=== PATIENT | male | born 1970 | race American Indian/Alaskan Native ===

== ENCOUNTER 2018-09-19 18:54 | Emergency (ER) | payer SELFPAY ==
[2018-09-19 19:34] LABS: Basophils % (Auto) 0.8 % (0.0-1.8); Eosinophils # (Auto) 0.2 K/mm3 (0.0-0.4); Eosinophils % (Auto) 5.5 % (0.0-4.3); Hematocrit 39.8 % (35.5-45.6); Hemoglobin 13.4 gm/dl (11.8-15.2); Lymphocytes # (Auto) 2.1 K/mm3 (1.2-5.4); Lymphocytes % (Auto) 48.8 % (13.4-35.0); Mean Corpuscular HGB Conc 34 % (32-34); Mean Corpuscular Hemoglobin 30 pg (28-32); Mean Corpuscular Volume 89 fl (84-94); Monocytes # (Auto) 0.4 K/mm3 (0.0-0.8); Monocytes % (Auto) 9.1 % (0.0-7.3); Platelet Count 177 K/mm3 (140-440); Red Blood Count 4.45 M/mm3 (3.65-5.03); Red Cell Distribution Width 13.5 % (13.2-15.2)
[2018-09-19 19:52] LABS: BUN/Creatinine Ratio 13; Blood Urea Nitrogen 14 mg/dL (9-20); Calcium 9.5 mg/dL (8.4-10.2); Hemolysis Index 10
--- NOTE | 2018-09-19 20:00 | XRay Report ---
CHEST 2 VIEWS INDICATION / CLINICAL INFORMATION: Chest Pain. COMPARISON: None available. FINDINGS: SUPPORT DEVICES: None. HEART / MEDIASTINUM: No significant abnormality. LUNGS / PLEURA: No significant pulmonary or pleural abnormality. No pneumothorax. ADDITIONAL FINDINGS: No significant additional findings. IMPRESSION: 1. No acute findings. Signer Name: Lance Palacios MD Signed: 09/19/2018 7:56 PM Workstation Name: [id number]
--- NOTE | 2018-09-19 21:45 | Emergency Department Report ---
ED Chest Pain HPI - General Chief Complaint: Chest Pain Stated Complaint: RT CHEST PAIN/RT FINGER TINGLE Time Seen by Provider: 09/19/18 20:10 Source: patient Mode of arrival: Ambulatory Limitations: No Limitations - History of Present Illness Initial Comments: Patient is a 48-year-old male who presents to the emergency room with complaints of jumping feeling in the right side of his chest that began a few days ago. He states it feels like a spasm. He states he also noticed brief tingling in the right fingers. The patient states he has experienced before after heavy working out. He states he has been doing heavy lifting and pushups at the gym. He denies any nausea, vomiting, fever, cough, lower extremity edema, shortness of breath. He denies any cardiac history or family cardiac history. He has a past medical history of high blood pressure and did not take his medication today. He is also HIV positive on his antivirals. He states he does smoke tobacco. - Related Data Previous Rx's Medication Instructions Recorded Last Taken Type Cyclobenzaprine [Flexeril] 10 mg PO QHS PRN #10 tablet 09/19/18 Unknown Rx Naproxen [EC-Naprosyn] 500 mg PO BID PRN #20 tablet. 09/19/18 Unknown Rx Allergies Allergy/AdvReac Type Severity Reaction Status Date / Time Sulfa (Sulfonamide Allergy Itching Verified 09/19/18 19:00 Antibiotics) Heart Score - HEART Score History: Slightly suspicious EKG: Normal Age: 45-65 Risk factors: 1-2 risk factors Troponin: < normal limit HEART Score: 2 ED Review of Systems ROS: Stated complaint: RT CHEST PAIN/RT FINGER TINGLE Other details as noted in HPI Comment: All other systems reviewed and negative ED Past Medical Hx - Past Medical History Previous Medical History?: Yes Hx Hypertension: Yes Additional medical history: hiv - Surgical History Past Surgical History?: No - Social History Smoking Status: Never Smoker Substance Use Type: Alcohol - Medications Home Medications: Home Medications Medication Instructions Recorded Confirmed Last Taken Type Cyclobenzaprine [Flexeril] 10 mg PO QHS PRN #10 tablet 09/19/18 Unknown Rx Naproxen [EC-Naprosyn] 500 mg PO BID PRN #20 tablet. 09/19/18 Unknown Rx ED Physical Exam - General Limitations: No Limitations General appearance: alert, in no apparent distress - Head Head exam: Present: atraumatic, normocephalic - Eye Eye exam: Present: normal appearance, PERRL - ENT ENT exam: Present: mucous membranes moist - Respiratory Respiratory exam: Present: normal lung sounds bilaterally, chest wall tenderness (right anterior chest wall TTP). Absent: respiratory distress, wheezes, rales, rhonchi, stridor, accessory muscle use, decreased breath sounds, prolonged expiratory - Cardiovascular Cardiovascular Exam: Present: regular rate, normal rhythm, normal heart sounds. Absent: systolic murmur, diastolic murmur, rubs, gallop - Neurological Exam Neurological exam: Present: alert, oriented X3 - Psychiatric Psychiatric exam: Present: normal affect, normal mood - Skin Skin exam: Present: warm, dry, intact ED Course Vital Signs 09/19/18 09/20/18 18:58 00:20 Temperature 98.0 F 98.4 F Pulse Rate 75 70 Respiratory 16 16 Rate Blood Pressure 178/109 Blood Pressure 160/86 [Left] O2 Sat by Pulse 99 100 Oximetry REINIER score - Reinier Score Age > 65: (0) No Aspirin use within the Past 7 Days: (0) No 3 or more CAD Risk Factors: (0) No 2 or more Angina events in past 24 hrs: (0) No Known CAD with more than 50% Stenosis: (0) No Elevated Cardiac Markers: (0) No ST Deviation Greater than 0.5mm: (0) No REINIER Score: 0 ED Medical Decision Making - Lab Data Result diagrams: 09/19/18 19:20 09/19/18 19:20 Lab Results 09/19/18 09/19/18 09/19/18 Range/Units 19:20 19:20 22:28 WBC 4.3 L (4.5-11.0) K/mm3 RBC 4.45 (3.65-5.03) M/mm3 Hgb 13.4 (11.8-15.2) gm/dl Hct 39.8 (35.5-45.6) % MCV 89 (84-94) fl MCH 30 (28-32) pg MCHC 34 (32-34) % RDW 13.5 (13.2-15.2) % Plt Count 177 (140-440) K/mm3 Lymph % (Auto) 48.8 H (13.4-35.0) % Becker % (Auto) 9.1 H (0.0-7.3) % Eos % (Auto) 5.5 H (0.0-4.3) % Baso % (Auto) 0.8 (0.0-1.8) % Lymph # 2.1 (1.2-5.4) K/mm3 Becker # 0.4 (0.0-0.8) K/mm3 Eos # 0.2 (0.0-0.4) K/mm3 Baso # 0.0 (0.0-0.1) K/mm3 Seg Neutrophils % 35.8 L (40.0-70.0) % Seg Neutrophils # 1.5 L (1.8-7.7) K/mm3 Sodium 143 (137-145) mmol/L Potassium 4.1 (3.6-5.0) mmol/L Chloride 102.3 (98-107) mmol/L Carbon Dioxide 30 (22-30) mmol/L Anion Gap 15 mmol/L BUN 14 (9-20) mg/dL Creatinine 1.1 (0.8-1.5) mg/dL Estimated GFR > 60 ml/min BUN/Creatinine Ratio 13 % Glucose 97 (75-100) mg/dL Calcium 9.5 (8.4-10.2) mg/dL Troponin T < 0.010 < 0.010 (0.00-0.029) ng/mL Vital Signs 09/19/18 09/20/18 18:58 00:20 Temperature 98.0 F 98.4 F Pulse Rate 75 70 Respiratory 16 16 Rate Blood Pressure 178/109 Blood Pressure 160/86 [Left] O2 Sat by Pulse 99 100 Oximetry - EKG Data EKG shows normal: sinus rhythm, axis, intervals, QRS complexes, ST-T waves Rate: bradycardia - Radiology Data Radiology results: report reviewed CHEST 2 VIEWS INDICATION / CLINICAL INFORMATION: Chest Pain. COMPARISON: None available. FINDINGS: SUPPORT DEVICES: None. HEART / MEDIASTINUM: No significant abnormality. LUNGS / PLEURA: No significant pulmonary or pleural abnormality. No pneumothorax. ADDITIONAL FINDINGS: No significant additional findings. IMPRESSION: 1. No acute findings. Signer Name: Lance Palacios MD Signed: 09/19/2018 7:56 PM Workstation Name: [id number] Transcribed By: FISH Dictated By: Lance Palacios MD Electronically Authenticated By: Lance Palacios MD Signed Date/Time: 09/19/181955 - Medical Decision Making Patient is a 48-year-old male who presents to the emergency room with complaints of jumping feeling in the right side of his chest that began a few days ago. He states it feels like a spasm. He states he also noticed brief tingling in the right fingers. The patient states he has experienced before after heavy working out. He states he has been doing heavy lifting and pushups at the gym. He denies any nausea, vomiting, fever, cough, lower extremity edema, shortness of breath. He denies any cardiac history or family cardiac history. He has a past medical history of high blood pressure and did not take his medication today. He is also HIV positive on his antivirals. He states he does smoke tobacco. vitals with elevated blood pressure secondary to pt not taking his me dication. no tachycardia, no tachypnea, normal oxygen saturation. labs stable. trop negative x2. CXR with no acute process. EKG with sinus emily otherwise no acute process. REINIER score is negative, heart score is low, pt is a low risk for cardiac event. pt is PERC criteria negative. on exam: right anterior chest wall TTP. pt given prescription for anti-inflammatory and muscle relaxer. advised to please take medication as prescribed. do not drive or operate heavy machinery while taking muscle relaxer. 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 may use ice, rest, epsom salt bath. return to the emergency room for any new or worsening symptoms. advised pt to please take his high blood pressure medication as prescribed by his doctor. discussed a blood pressure log and low sodium diet. advised to follow up with his PCP to discuss the elevation in his blood pressure. - Differential Diagnosis ACS, angina, costochrondritis, GERD, PTX, aortic aneursym Critical care attestation.: If time is entered above; I have spent that time in minutes in the direct care of this critically ill patient, excluding procedure time. ED Disposition Clinical Impression: Elevated blood pressure reading Chest pain Qualifiers: Chest pain type: unspecified Qualified Code(s): R07.9 - Chest pain, unspecified Disposition: DC-01 TO HOME OR SELFCARE Is pt being admited?: No Does the pt Need Aspirin: No Condition: Stable Instructions: Chest Pain (ED), Costochondritis (ED) Additional Instructions: please take medication as prescribed. do not drive or operate heavy machinery while taking muscle relaxer. 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 may use ice, rest, epsom salt bath. return to the emergency room for any new or worsening symptoms. Prescriptions: Cyclobenzaprine [Flexeril] 10 mg PO QHS PRN #10 tablet PRN Reason: Muscle Spasm Naproxen [EC-Naprosyn] 500 mg PO BID PRN #20 tablet.dr CHILEL Reason: Pain, Moderate (4-6) Referrals: [facility] MD MATHIEU [Primary Care Provider] - 2-3 Days PORTIA HARVEY MD [Staff Physician] - 2-3 Days Time of Disposition: 23:48 Print Language: [place]
[2018-09-20 02:42] VITALS: BP 160/86
== END 2018-09-20 00:20 | disposition home or self-care (01) ==
LOC: ED 18:54
DX: R07.9 Chest pain, unspecified (principal); I10 Essential (primary) hypertension; F17.200 Nicotine dependence, unspecified, uncomplicated; Z21 Asymptomatic human immunodeficiency virus [HIV] infection status; Z79.899 Other long term (current) drug therapy; Z88.2 Allergy status to sulfonamides
CPT/HCPCS: 36415; 71046; 80048; 84484; 85025; 93005; 93010